=== PATIENT | male | born 1990 | race African-American/Black ===

== ENCOUNTER 2020-02-01 16:10 | Emergency (ER) | payer OTHER ==
[~2020-02-01] VITALS: Ht 167.6 cm; Wt 90.7 kg
--- NOTE | 2020-02-01 16:10 | NUR ---
PATIENT C[facility] BLS TO ER BED 05
--- NOTE | 2020-02-01 16:10 | NUR ---
biba to bed 05
[2020-02-01 16:17] VITALS: BP 131/75
[2020-02-01 16:20] VITALS: BP 131/75
--- NOTE | 2020-02-01 16:20 | NUR ---
see complete assessment.
--- NOTE | 2020-02-01 16:20 | NUR ---
SOLOMON Frias at bedside for MSE.
[2020-02-01] MEDS ORDERED: AZITHROMYCIN 250 MG TAB PO ONE (16:35)
[2020-02-01] MEDS ORDERED: cefTRIAXone 250 MG in LIDOCAINE MPF 1% 0.9 ML IM ONE (16:35)
[2020-02-01] MEDS ORDERED: PENICILLIN G BENZATHINE C-R 1.2 MU/2 ML SYR IM ONE (16:35)
[2020-02-01] MEDS ORDERED: cefTRIAXone 250 MG VIAL ONE (16:44)
[2020-02-01] MEDS ORDERED: LIDOCAINE MPF 1% 5 ML ONE (16:45)
[2020-02-03 06:07] LABS: CHLAMYDIA TRACHOMATIS AMP DNA Negative (Negative)
== END 2020-02-01 17:17 | disposition home or self-care (01) ==
LOC: MED 16:10
DX: R03.0 Elevated blood-pressure reading, without diagnosis of hypertension (principal); F41.9 Anxiety disorder, unspecified; H53.8 Other visual disturbances; Z11.3 Encounter for screening for infections with a predominantly sexual mode of transmission
CPT/HCPCS: 36415; 81002; 87491; 96372; 99284; J0558; J0696; J2001